=== PATIENT | male | born 1945 | race Caucasian/White ===

== ENCOUNTER 2021-07-15 10:19 | Day surgery (SDC) | payer OTHER ==
[2021-07-10 13:44] LABS: BASOPHILS % (AUTO) 0.4 % (0-1); EOSINOPHILS % (AUTO) 0.3 % (0-6); HEMATOCRIT 45.4 % (42.0-52.0); HEMOGLOBIN 15.2 g/dl (14.0-17.9); LYMPHOCYTES # (AUTO) 1.1 X10'3 (1.1-4.8); LYMPHOCYTES % (AUTO) 10.6 % (21-51); MEAN CORPUSCULAR HEMOGLOBIN 31.3 PG (27.0-31.0); MEAN CORPUSCULAR HGB CONC 33.6 g/dL (33.0-36.5); MEAN CORPUSCULAR VOLUME 93.1 FL (78-98); MEAN PLATELET VOLUME 6.7 FL (7.4-10.4); MONOCYTES # (AUTO) 0.7 X10'3 (0-0.9); MONOCYTES % (AUTO) 7.1 % (2-12); NEUTROPHILS # (AUTO) 8.4 X10'3 (1.8-7.7); NEUTROPHILS % (AUTO) 81.6 % (42-75); PLATELET COUNT 274 X10'3 (140-440); RED BLOOD COUNT 4.87 X10'6 (4.70-6.10); WHITE BLOOD COUNT 10.3 X10'3 (4.5-11.0)
[2021-07-10 13:54] LABS: APTT 27 SECONDS (22-32)
[2021-07-10 13:56] LABS: ALBUMIN 3.8 G/DL (3.4-5.0); ANION GAP 7 (8-16); BLOOD UREA NITROGEN 15 MG/DL (7-18); BUN/CREATININE RATIO 18.3 (5.4-32.0); CALCIUM 8.8 MG/DL (8.5-10.1); CHLORIDE 103 MMOL/L (99-107); CREATININE 0.82 MG/DL (0.60-1.10); GLUCOSE 105 MG/DL (70-104); POTASSIUM 4.3 MMOL/L (3.5-5.1); SODIUM 138 MMOL/L (135-145); TOTAL CARBON DIOXIDE 27.9 MMOL/L (24-32); eGFR > 90 ML/MIN
[2021-07-15] VITALS (10 sets, daily range): BP systolic 123–142; BP diastolic 55–72
[~2021-07-15] VITALS: Ht 180.3 cm; Wt 75.1 kg
[2021-07-15] MEDS ORDERED: diphenhydrAMINE 25mg capsule PO PRN (10:35)
[2021-07-15] MEDS ORDERED: LORazepam 0.5 MG tablet PO PRN (10:35)
[2021-07-15] MEDS ORDERED: normal saline 1,000 ML IV SCH (10:35)
[2021-07-15] MEDS ORDERED: OMEP40CA21 PO (10:57)
[2021-07-15] MEDS ORDERED: HYDR-3972 PO (10:57)
[2021-07-15] MEDS ORDERED: ATOR80TA PO (10:57)
[2021-07-15] MEDS ORDERED: OXYB5TAB16 PO (10:57)
[2021-07-15] MEDS ORDERED: CYCL-1 PO (10:57)
[2021-07-15] MEDS ORDERED: BUDE10.2 INH (10:57)
[2021-07-15] MEDS ORDERED: LEVO125T PO (10:57)
[2021-07-15] MEDS ORDERED: DILT-115 PO (10:57)
[2021-07-15] MEDS ORDERED: TEMA30CA5 PO (10:57)
[2021-07-15] MEDS ORDERED: ASPI-1071 PO (10:57)
[2021-07-15] MEDS ORDERED: GUAI200T5 PO (10:57)
[2021-07-15] MEDS ORDERED: NITR0.4T51 SL (10:57)
[2021-07-15] MEDS ORDERED: TRAZ-256 PO (10:57)
[2021-07-15] MEDS ORDERED: iohexol 350MG/ML 100ml bottle IV ONE (11:22)
[2021-07-15] MEDS ORDERED: LIDOcaine 1% (10mg/ml)w/preservative injection 20ml MDV ONE (11:22)
[2021-07-15] MEDS ORDERED: fentaNYL/PF 50MCG/1 ML 2ML syringe ONE (12:21)
[2021-07-15] MEDS ORDERED: midazolam 1 mg/ML 2ml injection ONE (12:21)
[2021-07-15] MEDS ORDERED: iohexol 350 MG/ML 50ML vial IV ONE (12:57)
[2021-07-15] MEDS ORDERED: OXAZEpam 15mg capsule PO PRN (13:40)
[2021-07-15] MEDS ORDERED: ondansetron/PF 4mg/2ml inj IV PRN (13:40)
[2021-07-15] MEDS ORDERED: proCHLORperazine 10 MG/2 ml inj IV PRN (13:40)
== END 2021-07-15 16:52 | disposition home or self-care (01) ==
LOC: SSTAY O 10:19
PROVIDERS: ATTEND Internal Medicine Interventional Cardiology
DX: R07.89 Other chest pain (principal); I25.10 Atherosclerotic heart disease of native coronary artery without angina pectoris; J44.9 Chronic obstructive pulmonary disease, unspecified; G47.33 Obstructive sleep apnea (adult) (pediatric); E03.9 Hypothyroidism, unspecified; K21.9 Gastro-esophageal reflux disease without esophagitis; E78.5 Hyperlipidemia, unspecified; Z79.01 Long term (current) use of anticoagulants; Z95.1 Presence of aortocoronary bypass graft; Z87.891 Personal history of nicotine dependence; Z85.118 Personal history of other malignant neoplasm of bronchus and lung; Z98.1 Arthrodesis status; Z88.8 Allergy status to other drugs, medicaments and biological substances
CPT/HCPCS: 36415; 80048; 85025; 85610; 85730; 93005; 93459; 99152; C1769; J1644; J2250; J3010; J3490; J7030; Q0163; Q9967; 93458; A4620; A6258